=== PATIENT | female | born 1970 | race Caucasian/White ===

== ENCOUNTER 2019-12-04 04:52 | Outpatient (CLI) | payer OTHER, SELFPAY ==
[2019-12-04 08:14] LABS: ALT 44 U/L (14-59); AST 12 U/L (15-37); Albumin 3.9 g/dL (3.4-5.0); Alkaline Phosphatase 61 U/L (46-116); Anion Gap 7.2 mmol/L (3-11); BUN 11 mg/dL (7-18); Bilirubin, Total 0.4 mg/dL (0.2-1.0); CO2 28.8 mmol/L (21.0-32.0); CREATININE 0.72 mg/dL (0.55-1.02); Calcium 9.3 mg/dL (8.5-10.1); Calculated LDL 92 mg/dL (<100); Chloride 107 mmol/L (98-107); Cholesterol 197 mg/dL (<200); Glucose 88 mg/dL (74-106); HDL Cholesterol 96 mg/dL (40-60); Potassium 4.6 mmol/L (3.5-5.1); Sodium 143 mmol/L (136-145); Triglyceride 47 mg/dL (<150)
== END 2019-12-04 05:12 ==
PROVIDERS: PCP Family Medicine; Visit Provider Physician Assistant
DX: F10.10 Alcohol abuse, uncomplicated (principal); I10 Essential (primary) hypertension
CPT/HCPCS: 36415; 80053; 80061

== ENCOUNTER 2020-03-13 09:27 | Outpatient (REF) | payer OTHER, SELFPAY ==
--- NOTE | 2020-03-13 09:00 | PAPFT_PTH ---
PATIENT: Paula Yanes LOC: [facility] U#:[id number] AGE/SX: 50/F ROOM: RE03/13/[address]: ASYA Fong : 1970 BED: DIS: 03/13/2020 SPEC #: [id number] RECD: 03/13/20 12:53 STATUS: ALLAN REQ #: [id number] CARLOS: 03/13/20 09:[address]: Luz Marina Martinez DEPT: [facility] Cytology RECD BY: Yesenia Clinton ENTERED: 03/13/20 12:54 SP TYPE: PAPFT OTHR DR: Keagan Willson Tissues: 1 - CX/ENDOCX FOR PAP SMEARS Procedures: PAP THIN PREP/UVM Screening HPV DNA PROBE Comments: [id number]
== END 2020-03-13 09:47 ==
LOC: LBN 09:27
PROVIDERS: PCP Family Medicine; Visit Provider Nurse Practitioner Family
DX: Z12.4 Encounter for screening for malignant neoplasm of cervix (principal); Z11.51 Encounter for screening for human papillomavirus (HPV)
CPT/HCPCS: 88142; 87624

== ENCOUNTER 2020-04-10 01:05 | Outpatient (CLI) | payer OTHER, SELFPAY ==
--- NOTE | 2020-04-10 07:30 | DI.MAMMO_ITS ---
EXAM: MG MAMMO SCREENING CLINICAL HISTORY: screening. TECHNIQUE: Bilateral full field digital CC and MLO mammographic images were obtained with 3D tomosyn thesis and utilizing computer aided detection (CAD). COMPARISON: Prior mammograms dating back to 2010, the most recent being July 2017. FINDINGS: There is benign appearing microcalcification group noted in the left breast, unchanged. There appear to be increasing nodular densities towards lateral aspect right breast. Spot compressio n and ultrasound recommended no malignant-appearing microcalcification groups in this region or elsew here in either breast. There is no significant architectural distortion nor skin thickening-retract ion. IMPRESSION: No radiographic evidence of malignancy in the left breast. Increasing subtle nodular densities in the lateral aspect of the right breast as well as medially of center. Recommend spot compression CC views plus straight lateral 3D view. Also recommend breast ul trasound. BI-RADS Category 0 - Assessment Incomplete: Need additional imaging evaluation Breast Density - Category B - Scattered areas of fibroglandular density Breast density Category C or D implies that the patient has dense breast tissue. Dense breast tissue can make it harder to find cancer on a mammogram. Dense breast tissue is also associated with an incr eased risk of breast cancer. This information about the result of the mammogram report was provided to the patient to raise their awareness. Use this report when you speak with the patient about their risks for breast cancer, which includes their family history. At that time, you may recommend additional screening tests (Ultrasoun d or MRI) as these tests may add significant information. A negative radiographic report should not delay biopsy if a dominant or clinically suspicious mass is present. Up to ten percent of cancers are not identified on mammography. A negative report may reinforce clinical impression. Adenosis and dense breasts may obscure an underlying neoplasm. False positive reports average 6 to 10%. Patient will receive a letter notifying them of these results.
== END 2020-04-10 01:25 ==
PROVIDERS: PCP Student in an Organized Health Care Education/Training Program; Visit Provider Nurse Practitioner Family
DX: Z12.31 Encounter for screening mammogram for malignant neoplasm of breast (principal); R92.8 Other abnormal and inconclusive findings on diagnostic imaging of breast
CPT/HCPCS: 77063; 77067

== ENCOUNTER 2020-04-18 04:42 | Outpatient (CLI) | payer OTHER, SELFPAY ==
--- NOTE | 2020-04-18 | DI.US_ITS ---
EXAM: US BREAST RT LIMITED CLINICAL HISTORY: F/U MAMMO, INCREASING NODULAR DENSITIES. TECHNIQUE: Limited ultrasound of the right breast was performed. COMPARISON: Prior mammograms were reviewed. Today spot compression 3D views were reviewed . This is a combined report for the diagnostic mammogram and ultrasound FINDINGS: Additional spot compression 3D mammographic views are somewhat equivocal for the presence of true nod ules. Therefore we proceeded with breast ultrasound. Right breast ultrasound reveals a solitary focal finding which is at the 11 o'clock position. This h as the appearance of a 3 x 3 millimeter hemorrhagic microcyst. It exhibits slightly increased throug h transmission. IMPRESSION: Benign-appearing finding as described above located at the 11 o'clock position of the right breast. Appropriate follow-up is repeat right breast imaging in 6 months time, this to include repeat right b reast mammogram and repeat right breast ultrasound.. Findings and recommendations were discussed by myself with the patient today. BI-RADS Category 3 - 6 month - Probably Benign Finding: Recommend follow-up mammography in 6 months Breast Density - Category B - Scattered areas of fibroglandular density Breast density Category C or D implies that the patient has dense breast tissue. Dense breast tissue can make it harder to find cancer on a mammogram. Dense breast tissue is also associated with an incr eased risk of breast cancer. This information about the result of the mammogram report was provided to the patient to raise their awareness. Use this report when you speak with the patient about their risks for breast cancer, which includes their family history. At that time, you may recommend additional screening tests (Ultrasoun d or MRI) as these tests may add significant information. A negative radiographic report should not delay biopsy if a dominant or clinically suspicious mass is present. Up to ten percent of cancers are not identified on mammography. A negative report may reinforce clinical impression. Adenosis and dense breasts may obscure an underlying neoplasm. False positive reports average 6 to 10%. Patient will receive a letter notifying them of these results.
--- NOTE | 2020-04-18 14:43 | DI.MAMMO_ITS ---
EXAM: MG MAMMO SCREEN CALL BACK UNI CLINICAL HISTORY: F/U MAMMO, INCREASING NODULAR DENSITIES RT BREAST. TECHNIQUE: Spot-compression 3D views of the right breast. COMPARISON: Prior mammograms dating back to 2010, the most recent being 04/10/2020. FINDINGS: Additional spot mammographic views performed today render some of the nodular densities less evident. One is equivocal. Right breast ultrasound performed following the additional mammographic views revealed a solitary fin ding at 11 o'clock position which has appearance of a well-defined 3 x 3 millimeter deep hemorrhagic microcyst.. IMPRESSION: As above. Appropriate follow-up is repeat right breast imaging in 6 months time, this to include rep eat right breast mammogram and repeat breast ultrasound. Findings and recommendations were discussed by myself with the patient today. BI-RADS Category 3 - 6 month - Probably Benign Finding: Recommend follow-up mammography in 6 months Breast Density - Category B - Scattered areas of fibroglandular density Breast density Category C or D implies that the patient has dense breast tissue. Dense breast tissue can make it harder to find cancer on a mammogram. Dense breast tissue is also associated with an incr eased risk of breast cancer. This information about the result of the mammogram report was provided to the patient to raise their awareness. Use this report when you speak with the patient about their risks for breast cancer, which includes their family history. At that time, you may recommend additional screening tests (Ultrasoun d or MRI) as these tests may add significant information. A negative radiographic report should not delay biopsy if a dominant or clinically suspicious mass is present. Up to ten percent of cancers are not identified on mammography. A negative report may reinforce clinical impression. Adenosis and dense breasts may obscure an underlying neoplasm. False positive reports average 6 to 10%. Patient will receive a letter notifying them of these results.
== END 2020-04-18 05:02 ==
PROVIDERS: PCP Student in an Organized Health Care Education/Training Program; Visit Provider Nurse Practitioner Family
DX: R92.8 Other abnormal and inconclusive findings on diagnostic imaging of breast (principal)
CPT/HCPCS: 76642; 77063; 77067

== ENCOUNTER 2020-11-14 02:55 | Outpatient (CLI) | payer OTHER, SELFPAY ==
--- NOTE | 2020-11-14 08:15 | DI.MAMMO_ITS ---
Exam(s) MG MAMMO DIAGNOSTIC UNI US BREAST RT LIMITED EXAM: MG MAMMO DIAGNOSTIC UNI and U/S breast RT limited CLINICAL HISTORY: 6mo f/u,R92.8. TECHNIQUE: Craniocaudal and mediolateral oblique Full Field Digital Mammography views of the right b reast with Computer Aided Diagnosis followed by Tomosynthesis and right breast ultrasound. COMPARISON: Priors are available for comparison. FINDINGS: Mammography/Tomosynthesis: Masses/Architectural Distortion: The nodular density in the upper right breast appears stable. No jason spicious masses or areas of architectural distortion. Microcalcifictions: No suspicious pleomorphic-type are seen. Skin Thickening/Nipple Retraction: None. Right breast US: Echotexture: Normal appearance of the glandular tissue. Shadowing: No suspicious foci. Cyst: There is again seen at 3 x 2 x 3 mm cyst at the 11 o'clock position of the right breast 5 cm fr om the nipple. It shows no change compared to the prior examination. Solid lesions: None seen. Ductal dilation: None. IMPRESSION: 1. No evidence of malignancy is noted. 2. A six-month follow-up right mammogram and ultrasound are requested for re-evaluation. Screening m ammography of the left breast should be obtained at that time. 3. The findings were discussed with the patient on the date of the examination. BI-RADS Category 3 - 6 month - Probably Benign Finding: Recommend follow-up imaging in 6 months Breast Density - Category B - Scattered areas of fibroglandular density Breast density Category C or D implies that the patient has dense breast tissue. Dense breast tissue can make it harder to find cancer on a mammogram. Dense breast tissue is also associated with an incr eased risk of breast cancer. This information about the result of the mammogram report was provided to the patient to raise their awareness. Use this report when you speak with the patient about their risks for breast cancer, which includes their family history. At that time, you may recommend additional screening tests (Ultrasoun d or MRI) as these tests may add significant information. A negative radiographic report should not delay biopsy if a dominant or clinically suspicious mass is present. Up to ten percent of cancers are not identified on mammography. A negative report may reinforce clinical impression. Adenosis and dense breasts may obscure an underlying neoplasm. False positive reports average 6 to 10%. Patient will receive a letter notifying them of these results.
== END 2020-11-14 03:15 ==
PROVIDERS: PCP Student in an Organized Health Care Education/Training Program; Visit Provider Nurse Practitioner Family
DX: R92.8 Other abnormal and inconclusive findings on diagnostic imaging of breast (principal)
CPT/HCPCS: 76642; 77061; 77065; G0279

== ENCOUNTER 2020-11-21 11:00 | Day surgery (SDC) | payer OTHER, SELFPAY ==
--- NOTE | 2020-11-20 15:03 | W.COLOREPORT ---
Date of service: 11/21/20 Time of Service: 11:00 Colonoscopy Report Date of procedure: 11/21/20 Pre-op diagnosis general: Colon cancer screening Post-op diagnosis procedure note: other Surgeon: Pricila Rogers Anesthesia Type: General:No Airway Estimated blood loss (mL): 1 Pathology: other Complications: None Disposition: same day Retraction Time: 11 Procedure Description: After informed consent was obtained the patient was taken to the procedure room and placed in a left decubitous position. Monitors were applied and a time out was done. The patients name, date of , procedure, allergies to medications and metal in their body was reviewed. The patient was then sedated. Once sedated and comfortable a rectal exam was done. External exam was normal. Internal exam revealed a normal sphincter tone and no palpable masses. The scope was then introduced and retrofelexed. No internal hemorrhoids were identified. The scope was then advanced to the cecum without difficulty. The TI and appendiceal orifice were identified. The prep was good. The scope was then slowly retracted over 11 minutes back into the rectum. Polyps were removed at 30cm w/ a hot forcepts. The scope was removed and the patient was woken up and taken back to Same day surgery in stable condition. The patient tolerated the procedure well and there were no immediate complications. Follow up: The patient should follow up in 5 years unless they develop changes in bowel habits or other new gastrointestinal complaints.
--- NOTE | 2020-11-20 15:04 | PDOC.DSDIS_ITS ---
Discharge Plan Disposition Patient Disposition: HOME Condition: Good Discharge Details Reason For Visit: colon scope Attending Provider: Pricila Rogers Primary Care Provider: Samanta Walters Home Meds and New Rx's Prescriptions: Continued mecobalamin (vitamin B12) 5,000 mcg tablet,disintegrating 5,000 mcg PO DAILY RF: 0 Memory Complex 60-30-70-40 oj-mcys-sav-mg tablet 1 tab PO DAILY RF: 0 Complete Multivitamin Tablet 1 tab PO DAILY RF: 0 fluoxetine 40 mg capsule 80 mg PO DAILY Qty: 90 RF: 3 lisinopril 20 mg tablet 20 mg PO DAILY Qty: 90 RF: 3 Discontinued polyethylene glycol 3350 17 gram/dose powder 238 g PO ONCE Qty: 238 RF: 0 bisacodyl [Dulcolax (bisacodyl)] 5 mg tablet,delayed release (DR/EC) 5 mg PO ONCE Qty: 4 RF: 0 Discharge Instructions Additional Instructions: DSU Colonoscopy Post- Op Instructions Instructions for Everyone who is given Anesthesia: For your safety, please do the following for the next twenty-four (24) hours: *Do Not operate a motor vehicle (car, truck, motorcycle, etc.) *Do Not drink alcoholic beverages or use any recreational drugs for the first 24 hours or while taking pain medications. The medications in your body may have a reaction that can be dangerous. *Do Not make any important decisions or sign any important papers. Findings: polyp x1 Follow up: repeat scope in 5 yrs time 1. No lifting over 20 pounds or strenuous activity for the first 24 hours after your procedure. After 24 hours there are no restrictions on your activity but you may feel fatigued for a few days. 2. After you arrive home you may have a light meal and return to your normal diet as you can tolerate it without feeling sick to your stomach. 3. You may have a bloated, gaseous feeling in your belly (abdomen) after a colonoscopy. Passing gas and belching will help. Walking or lying down on your left side with your knees flexed may relieve the discomfort. Call the office at [phone] (Office) or [phone] (Hospital) right away if you notice any of the following: a.Vomiting of blood or ?coffee ground stools?. b.Rectal bleeding 1Tbsp, blood clots or continuous bleeding. c.Severe belly (abdominal) pain. d.A hard distended belly (abdomen) and an inability to pass gas. 4. Please don?t expect to have a normal BM (bowel movement) for 2-3 days after your procedure. 5. If there are questions regarding the findings of your procedure, please contact your doctor 6. If you are unable to contact your doctor with a problem, contact the hospital at [phone]. 7. Continue all your regular medications unless directed otherwise. I understand the above instructions and have no questions. Signature of Patient or Adult Escort Name of Responsible Adult Escort Signature of Nurse Date/Time Activity:: see above Diet:: see above Discharge Orders Discharge Orders: Discharge Order (Routine); Ordered 11/20/20 Ordered By: Pricila Rogers DS: Diagnosis Discharge Diagnosis (1) Adenomatous polyp of sigmoid colon: Status: Acute
--- NOTE | 2020-11-21 06:23 | ANES.PREOP_ITS ---
General Info Date of Service Date Performed: 11/21/20 Height: 5 ft 6 in Weight: 96.842 kg Body Mass Index (BMI): 34.4 Surgical Procedure: Operation Date: 11/21/20 11:20 Proposed Procedures Side Surgeon seamus Rogers, Meds Allergies and Home Medications Allergies Allergy/AdvReac Type Severity Reaction Status Date / Time No Known Drug Allergies Allergy Verified 11/21/20 11:17 Home Medication Medication Instructions Recorded multivitamin,rv-ysiy-boahgpah 1 tab PO DAILY 04/25/20 fluoxetine 40 mg capsule 80 mg PO DAILY #90 cap 04/26/20 lisinopril 20 mg tablet 20 mg PO DAILY #90 tab 04/26/20 bisacodyl 5 mg tablet,delayed 5 mg PO ONCE #4 tab 11/17/20 release mecobalamin (vitamin B12) 5,000 5,000 mcg PO DAILY 11/17/20 mcg disintegrating tablet polyethylene glycol 3350 17 238 g PO ONCE #238 g 11/17/20 gram/dose oral powder vit C-vit E-Se-ginkgo biloba 60 1 tab PO DAILY 11/17/20 mg-30 unit-70 mcg-40 mg tablet Current Visit Medications: Current Medications Generic Name Dose Route Start Last Admin Trade Name Freq PRN Reason Stop Dose Admin Hyoscyamine Sulfate 0.125 mg 11/20/20 15:03 Hyoscyamine 0.125 Mg Sl/Oral/Chew SL DIRECTED PRN Ringer's Solution 1,000 mls @ 80 mls/hr 11/21/20 06:00 IV 12/20/20 23:59 [facility] IV Miscellaneous Supplies 1 each 11/21/20 06:00 Iv Access IV 12/20/20 23:59 DIRECTED ALEJO Ondansetron HCl 4 mg 11/20/20 15:03 Ondansetron 4 Mg/2 Ml Vial IVP Q4H PRN PRN Nausea / Vomiting Sodium Chloride 0 ml 11/21/20 06:00 Normal Saline Flush 10 Ml Syr IV 12/20/20 23:59 PRN PRN Sodium Chloride 0 ml 11/21/20 06:00 Normal Saline 10 Ml Vial IJ 12/20/20 23:59 DIRECTED PRN Sterile Water 0 ml 11/21/20 06:00 Water,Injection,Sterile 10 Ml Vial IJ 12/20/20 23:59 DIRECTED PRN PFSH Active Problems Active Problems: Problem Status Onset Code Colon cancer screening Z12.11 Alcohol use Z72.89 Counseling on health promotion and disease prevention Z71.89 MADHAVI (obstructive sleep apnea) G47.33 Eczema L30.9 Depression 08/19/15 F32.9 Hypertension 08/19/15 I10 Medical History Medical History Alcohol use Counseling on health promotion and disease prevention Eczema History of ETOH abuse MADHAVI (obstructive sleep apnea) Tobacco Smoking/Tobacco Use Status: Former Tobacco Use Alcohol Alcohol Intake: current Alcohol intake frequency: 0-2 drinks per day Alcohol type: hard liquor Substance Use Substance use: Never Substance use type: does not use Prental History History 2 Para 1 Hx # Term Pregnancies Multiple births Hx # Pregnancies Ectopic pregnancies AB induced Hx Number of Living Children AB spontaneous Vital Signs and Lab Results Vital Signs Most Recent Vital Signs in EMR: Temp Pulse Resp BP Pulse Ox 36.7 C 83 17 146/90 H 96 11/21/20 11:11 11/21/20 11:11 11/21/20 11:11 11/21/20 11:11 11/21/20 11:11 Lab Results Blood Type / Crossmatch: No Data to Display Complete Blood Count: No Data to Display Complete Metabolic Panel: No Data to Display Liver Function Panel: No Data to Display Coagulation Panel: No Data to Display Cardiac Panel: No Data to Display Arterial Blood Gas: No Data to Display Venous Blood Gas: No Data to Display Pancreas Panel: No Data to Display Thyroid Panel: No Data to Display Infectious Disease: No Data to Display Blood Cultures: No Data to Display Toxicology Panel: No Data to Display Panel: No Data to Display Anesthesia Assessment and Plan Anesthesia History Personal History: No History of Anesthesia Complications Family History: No Family History of Anesthesia Complications Exercise Tolerance Exercise Tolerance: Metabolic Equivalents>4 Cardiac & Pulmonary Exam Cardiac Exam: Normal S1/S2 Heart Sounds Pulmonary Exam: Clear Bilateral Breath Sounds Airway Exam Known Difficult Airway: No Mallampati Class: 1 Mouth Opening: Normal (> 3cm) Thyromental Distance: Greater than 3 cm Neck Range of Motion: Full ROM Neck Circumference: Normal Teeth Condition: Normal Dentition ASA Classification ASA Score: ASA 2 Emergency Case?: No NPO Status NPO Status: NPO Clears >2 hours, Solids >8 hours Status Status: Negative HCG Anesthesia Plan Resuscitation Status: Full Code Anesthesia Technique: General Anesthesia Airway Planned: Natural Airway Monitors Used: Standard Monitors Preoperative Comments:: 50 yo female for screening colonoscopy. PMHx for MADHAVI (has CPAP), HTN (lisinopril).
[2020-11-21 11:11] VITALS: BP 146/90; PULSE 83; RESP 17; TEMP 36.7; O2SAT 96
[2020-11-21 11:25] VITALS: BMI 34.4
[2020-11-21] MEDS: Lactated Ringers 1,000 ML 80 ML IV (11:28)
--- NOTE | 2020-11-21 11:58 | BOWEL_PTH ---
PATIENT: Paula Yanes LOC: [facility] U#:[id number] AGE/SX: 50/F ROOM: RE11/21/[address]: Pricila Rogers : 1970 BED: DIS: 11/21/2020 SPEC #: [id number] RECD: 11/21/20 13:09 STATUS: ALLAN RE #: [id number] CARLOS: 11/21/20 11:[address]: Pricila Rogers DEPT: Surgical Specimen RECD BY: Yesenia Clinton ENTERED: 11/21/20 13:10 SP TYPE: Bowel OTHR DR: Samanta Walters DO Tissues: 1 - BIOPSY BOWEL Procedures: GROSS AND MICRO LEVEL 4 Comments: [id number]
[2020-11-21 12:05] VITALS: BP 106/70; PULSE 77; RESP 18; TEMP 36.4; O2SAT 96
[2020-11-21 12:35] VITALS: BP 137/80; PULSE 76; RESP 16; TEMP 36.2; O2SAT 97
--- NOTE | 2020-11-21 13:39 | W.ANESPOSTOP ---
Postoperative Evaluation Date, Time and Location Date Performed: 11/21/20 Time Performed: 13:39 Patient Location: Day Surgery Unit Vital Signs Most Recent Imported Vital Signs: Most Recent Vital Signs Temp Pulse Resp BP Pulse Ox 36.2 C L 76 16 137/80 97 11/21/20 12:35 11/21/20 12:35 11/21/20 12:35 11/21/20 12:35 11/21/20 12:35 Pain Score Most Recent Pain Score: Most Recent Pain Score Pain Level 0 11/21/20 12:35 Assessment Mental Status: Awake (Alert & Oriented to Patient Baseline) Airway and Respiratory Function: Patent airway with normal (patient baseline) respiratory exam Cardiovascular Function: Hemodynamically Stable Hydration Status: Adequately Hydrated Nausea & Vomiting: No Nausea or Vomiting Pain: Pt. Denies Any Pain Peripheral Nerve Block: Patient did not receive a nerve block
== END 2020-11-21 12:50 | disposition home or self-care (01) ==
PROVIDERS: PCP Student in an Organized Health Care Education/Training Program; Visit Provider Surgery
PROC: 0DJD8ZZ Inspection of Lower Intestinal Tract, Via Natural or Artificial Opening Endoscopic (ICD-10-PCS; CPT 45378; principal; 2020-11-21 11:15)
DX: Z12.11 Encounter for screening for malignant neoplasm of colon (principal); K63.5 Polyp of colon; G47.33 Obstructive sleep apnea (adult) (pediatric)
CPT/HCPCS: 45384; 81025; 88305; J2001; J2704

== ENCOUNTER 2021-07-24 00:29 | Outpatient (CLI) | payer BC, SELFPAY ==
--- NOTE | 2021-07-24 07:15 | DI.MAMMO_ITS ---
Exam(s) MAMMO DIAGNOSTIC BI EXAM: MAMMO DIAGNOSTIC BI CLINICAL HISTORY: diagnostic, 6 mo f/u, r92.8 TECHNIQUE: Mammograms were interpreted according to the usual protocol including computer analysis w [employer] CAD system, tomosynthesis and C-view imaging. COMPARISON: 2012 through 14 November 2020 FINDINGS: The breasts are composed of scattered fibroglandular densities, Breast Density category B. No suspicious masses or suspicious microcalcifications are seen. No skin thickening or abnormal axillary lymph nodes are seen. There has been no significant change from prior exams. IMPRESSION: BI-RADS Category 1, Negative mammogram Yearly screening mammography is recommended. Breast Density - Category B, scattered fibroglandular densities. A negative radiographic report should not delay biopsy if a dominant or clinically suspicious mass is present. Up to ten percent of cancers are not identified on mammography. A negative report may reinforce clinical impression. Adenosis and dense breasts may obscure an underlying neoplasm. False positive reports average 6 to 10%. Patient will receive a letter notifying them of these results.
== END 2021-07-24 00:49 ==
LOC: DI 00:34
PROVIDERS: PCP Student in an Organized Health Care Education/Training Program; Visit Provider Nurse Practitioner Family
DX: R92.8 Other abnormal and inconclusive findings on diagnostic imaging of breast (principal); N64.59 Other signs and symptoms in breast
CPT/HCPCS: 77062; 77066; G0279

== ENCOUNTER 2022-09-13 02:31 | Outpatient (CLI) | payer BC, SELFPAY ==
--- NOTE | 2022-09-13 17:00 | DI.MAMMO_ITS ---
Exam(s) MAMMO SCREENING EXAM: MAMMO SCREENING CLINICAL HISTORY: screening. TECHNIQUE: Bilateral full field digital CC and MLO mammographic images were obtained with 3D tomosyn thesis and utilizing computer aided detection (CAD). COMPARISON: Prior mammograms were reviewed. FINDINGS: No new significant findings in the right breast. In the left breast there is an asymmetric density-possible nodule measuring 11 by 10 mm, located appr oximately 4 cm in from nipple on the 3D MLO view. Further imaging of this recommended. No malignant-appearing microcalcification groups in this region. There is no significant architectural distortion nor skin thickening-retraction. IMPRESSION: 1. No radiographic evidence of malignancy in the right breast. 2. Left breast nodular density as described above. Spot compression views and breast ultrasound ary mmended. BI-RADS Category 0 - Assessment Incomplete: Need additional imaging evaluation Breast Density - Category B - Scattered areas of fibroglandular density Breast density Category C or D implies that the patient has dense breast tissue. Dense breast tissue can make it harder to find cancer on a mammogram. Dense breast tissue is also associated with an incr eased risk of breast cancer. This information about the result of the mammogram report was provided to the patient to raise their awareness. Use this report when you speak with the patient about their risks for breast cancer, which includes their family history. At that time, you may recommend additional screening tests (Ultrasoun d or MRI) as these tests may add significant information. A negative radiographic report should not delay biopsy if a dominant or clinically suspicious mass is present. Up to ten percent of cancers are not identified on mammography. A negative report may reinforce clinical impression. Adenosis and dense breasts may obscure an underlying neoplasm. False positive reports average 6 to 10%. Patient will receive a letter notifying them of these results.
== END 2022-09-13 02:51 ==
LOC: DI 02:32
PROVIDERS: PCP Student in an Organized Health Care Education/Training Program; Visit Provider Nurse Practitioner Women's Health
DX: Z12.31 Encounter for screening mammogram for malignant neoplasm of breast (principal)
CPT/HCPCS: 77063; 77067

== ENCOUNTER 2022-09-23 01:25 | Outpatient (CLI) | payer BC, SELFPAY ==
--- NOTE | 2022-09-23 | DI.MAMMO_ITS ---
Exam(s) MAMMO SCREEN CALL BACK UNI EXAM: MAMMO SCREEN CALL BACK UNI CLINICAL HISTORY: ASYMMETRIC DENSITY -POSSIBLE NODULE LEFT BREAST R92.8 ABNL MAMMO TECHNIQUE: Cc and MLO spot compression views with tomographic imaging were performed. COMPARISON: 2014 through recent exam of 13 September 2022 FINDINGS: No suspicious masses or suspicious microcalcifications are seen. No persistent abnormality is seen on the additional views performed. The findings are consistent wit h overlying fibroglandular tissue. There has been no significant change from prior exams. IMPRESSION: BI-RADS Category 1, Negative Yearly screening mammography is recommended. Breast Density - Category B, scattered fibroglandular densities.
== END 2022-09-23 01:45 ==
LOC: DI 01:25
PROVIDERS: PCP Student in an Organized Health Care Education/Training Program; Visit Provider Nurse Practitioner Women's Health
DX: Z12.31 Encounter for screening mammogram for malignant neoplasm of breast (principal); R92.8 Other abnormal and inconclusive findings on diagnostic imaging of breast
CPT/HCPCS: 77063; 77067

== ENCOUNTER 2023-01-06 03:59 | Outpatient (CLI) | payer BC, SELFPAY ==
[2023-01-06 07:59] LABS: HCT 36.5 % (36.0-46.0); HGB 12.6 g/dL (11.2-15.7); MCHC 34.5 % (32.0-36.0); MCV 98 fL (80-95); MPV 11.7 fL (8.0-11.0); Platelet Count 242 10^3/uL (130-400); RBC 3.71 10^6/uL (3.93-5.22); RDW 13.1 % (11.7-14.6); RDW-SD 47.3 fL; WBC 4.34 10^3/uL (4.4-10.8)
[2023-01-06 08:35] LABS: Folate 11.9 ng/mL (8.6-20.0)
[2023-01-06 08:54] LABS: ALT 82 U/L (14-59); AST 40 U/L (15-37); Albumin 3.6 g/dL (3.4-5.0); Alkaline Phosphatase 83 U/L (46-116); Anion Gap 11.4 mmol/L (3-11); BUN 8 mg/dL (7-18); Bilirubin, Total 0.3 mg/dL (0.2-1.0); CO2 24.6 mmol/L (21.0-32.0); CREATININE 0.8 mg/dL (0.55-1.02); Calcium 9.3 mg/dL (8.5-10.1); Calculated LDL 101 mg/dL (<100); Chloride 103 mmol/L (98-107); Cholesterol 224 mg/dL (<200); Glucose 82 mg/dL (74-106); HDL Cholesterol 109 mg/dL (40-60); Potassium 3.6 mmol/L (3.5-5.1); Sodium 139 mmol/L (136-145); Total Protein 7.6 g/dL (6.4-8.2); Triglyceride 74 mg/dL (<150); Vitamin B12 968 pg/mL (193-986)
[2023-01-06 09:03] LABS: Bilirubin, Direct 0.1 mg/dL (0.0-0.2)
== END 2023-01-06 04:00 | disposition home or self-care (01) ==
LOC: LBO 04:05
PROVIDERS: PCP Student in an Organized Health Care Education/Training Program; Referring Provider Student in an Organized Health Care Education/Training Program; Visit Provider Student in an Organized Health Care Education/Training Program
DX: D12.5 Benign neoplasm of sigmoid colon (principal); G47.33 Obstructive sleep apnea (adult) (pediatric); I10 Essential (primary) hypertension; N92.0 Excessive and frequent menstruation with regular cycle; R53.83 Other fatigue; F32.9 Major depressive disorder, single episode, unspecified; K21.9 Gastro-esophageal reflux disease without esophagitis; K90.9 Intestinal malabsorption, unspecified; Z63.79 Other stressful life events affecting family and household; Z72.89 Other problems related to lifestyle; Z91.89 Other specified personal risk factors, not elsewhere classified; Z13.220 Encounter for screening for lipoid disorders
CPT/HCPCS: 36415; 80048; 80061; 80076; 82306; 85027; 82607; 82746

== ENCOUNTER 2023-05-09 05:23 | Outpatient (CLI) | payer BC, SELFPAY ==
[2023-05-09 07:33] LABS: Abs Immature Grans 0.01 10^3/uL (0.0-0.06); Absolute Basophil Count 0.07 10^3/uL (0.0-0.2); Absolute Eosinophil Count 0.14 10^3/uL (0.0-0.7); Absolute Lymphocyte Count 2.03 10^3/uL (1.2-3.4); Absolute Monocyte Count 0.43 10^3/uL (0.1-0.8); Absolute Neutrophil Count 1.88 10^3/uL (1.2-6.7); Basophils % 1.5; Eosinophils % 3.1; HCT 36.9 % (36.0-46.0); HGB 12.8 g/dL (11.2-15.7); Immature Grans % 0.2; Lymphocytes % 44.5; MCH 34.1 pg (27.0-33.0); MCHC 34.7 % (32.0-36.0); MCV 98 fL (80-95); Monocytes % 9.4; Neutrophils % 41.3; Platelet Count 276 10^3/uL (130-400); RBC 3.75 10^6/uL (3.93-5.22); RDW 12.9 % (11.7-14.6); RDW-SD 46.3 fL; WBC 4.56 10^3/uL (4.4-10.8)
[2023-05-09 08:33] LABS: ALT 31 U/L (14-59); AST 19 U/L (15-37); Albumin 3.6 g/dL (3.4-5.0); Alkaline Phosphatase 70 U/L (46-116); BUN 11 mg/dL (7-18); Bilirubin, Direct 0.1 mg/dL (0.0-0.2); Bilirubin, Total 0.4 mg/dL (0.2-1.0); CREATININE 0.8 mg/dL (0.55-1.02); Calcium 8.8 mg/dL (8.5-10.1); Chloride 103 mmol/L (98-107); Estimated GFR 88.05 (mL/min/1.73m2); Glucose 85 mg/dL (74-106); Potassium 3.7 mmol/L (3.5-5.1); Sodium 139 mmol/L (136-145); Total Protein 7.4 g/dL (6.4-8.2)
== END 2023-05-09 05:24 | disposition home or self-care (01) ==
LOC: LBO 05:23
PROVIDERS: Absent Provider Student in an Organized Health Care Education/Training Program; PCP Student in an Organized Health Care Education/Training Program; Visit Provider Student in an Organized Health Care Education/Training Program
DX: I10 Essential (primary) hypertension (principal); D69.6 Thrombocytopenia, unspecified; R74.01 Elevation of levels of liver transaminase levels
CPT/HCPCS: 36415; 80048; 80076; 85025

== ENCOUNTER 2024-10-25 02:35 | Outpatient (CLI) | payer BC, SELFPAY ==
[2024-10-25 07:41] LABS: HCT 41.5 % (36.0-46.0); HGB 13.8 g/dL (11.2-15.7); MCH 32.5 pg (27.0-33.0); MCHC 33.3 % (32.0-36.0); MCV 98 fL (80-95); MPV 11.9 fL (8.0-11.0); Platelet Count 284 10^3/uL (130-400); RBC 4.25 10^6/uL (3.93-5.22); RDW 12.6 % (11.7-14.6); RDW-SD 45.6 fL; WBC 5.36 10^3/uL (4.4-10.8)
[2024-10-25 08:30] LABS: ALT 33 U/L (14-59); AST 14 U/L (15-37); Albumin 4.0 g/dL (3.4-5.0); Alkaline Phosphatase 84 U/L (46-116); Anion Gap 7.5 mmol/L (3-11); BUN 14 mg/dL (7-18); Bilirubin, Direct 0.1 mg/dL (0.0-0.2); Bilirubin, Total 0.5 mg/dL (0.2-1.0); CO2 29.5 mmol/L (21.0-32.0); Calcium 9.8 mg/dL (8.5-10.1); Chloride 102 mmol/L (98-107); Estimated GFR 87.50 (mL/min/1.73m2); Glucose 87 mg/dL (74-106); Potassium 4.0 mmol/L (3.5-5.1); Sodium 139 mmol/L (136-145); Total Protein 7.9 g/dL (6.4-8.2); Vitamin D 25 Total 50 ng/mL (30-100)
== END 2024-10-25 02:36 | disposition home or self-care (01) ==
PROVIDERS: PCP Nurse Practitioner Family; Visit Provider Nurse Practitioner Family
DX: D64.9 Anemia, unspecified (principal); Z72.89 Other problems related to lifestyle; R79.89 Other specified abnormal findings of blood chemistry
CPT/HCPCS: 36415; 80048; 80076; 82306; 85027

== ENCOUNTER 2024-11-14 08:49 | Outpatient (REF) | payer BC, SELFPAY ==
--- NOTE | 2024-11-14 08:25 | PAPFT_PTH ---
PATIENT: Paula Yanes LOC: [facility] U#:[id number] AGE/SX: 54/F ROOM: RE11/14/[address]: Delmi Ramirez NP : 1970 BED: DIS: 11/14/2024 SPEC #: [id number] RECD: 11/14/24 13:18 STATUS: ALLAN REQ #: [id number] CARLOS: 11/14/24 08:[address]: Delmi Ramirez NP DEPT: [facility] Cytology RECD BY: Yesenia Clinton ENTERED: 11/14/24 13:19 SP TYPE: PAPFT OTHR DR: Melissa Mcleod APRN Tissues: 1 - CX/ENDOCX FOR PAP SMEARS Procedures: PAP THIN PREP/[facility] Screening HPV DNA PROBE Comments: [id number] (HPV 16 & 18/45)
== END 2024-11-14 08:50 | disposition home or self-care (01) ==
LOC: LBN 08:49
PROVIDERS: PCP Nurse Practitioner Family; Visit Provider Nurse Practitioner Women's Health
DX: Z12.4 Encounter for screening for malignant neoplasm of cervix (principal)
CPT/HCPCS: 88142; 87624

== ENCOUNTER 2024-11-28 01:05 | Outpatient (CLI) | payer BC, SELFPAY ==
--- NOTE | 2024-11-28 07:45 | DI.MAMMO_ITS ---
Exam(s) MAMMO SCREENING EXAM: MAMMO SCREENING CLINICAL HISTORY: screening TECHNIQUE: Bilateral full field digital CC and MLO mammographic images were obtained with 3D tomosynthesis and utilizing computer aided detection (CAD). COMPARISON: Comparison is made with prior examinations. FINDINGS: Masses/Architectural Distortion: No suspicious masses or areas of architectural distortion are present. The asymmetric density in the upper central left breast is unchanged compared to the prior examinations. Microcalcifications: No suspicious pleomorphic-type are seen. Skin Thickening/Nipple Retraction: None. IMPRESSION: 1. No significant interval change with no specific features of malignancy noted. 2. Unless there is more urgent need, screening mammography is recommended, as per [employer] guidelines. BI-RADS Category 1 - Negative Breast Density - Category B - There are scattered areas of fibroglandular density. Breast density Category C or D implies that the patient has dense breast tissue. Dense breast tissue can make it harder to find cancer on a mammogram. Dense breast tissue is also associated with an increased risk of breast cancer. This information about the result of the mammogram report was provided to the patient to raise their awareness. Use this report when you speak with the patient about their risks for breast cancer, which includes their family history. At that time, you may recommend additional screening tests (Ultrasound or MRI) as these tests may add significant information. A negative radiographic report should not delay biopsy if a dominant or clinically suspicious mass is present. Up to ten percent of cancers are not identified on mammography. A negative report may reinforce clinical impression. Adenosis and dense breasts may obscure an underlying neoplasm. False positive reports average 6 to 10%. Patient will receive a letter notifying them of these results.
== END 2024-11-28 01:25 ==
LOC: DI 01:05
PROVIDERS: PCP Nurse Practitioner Family; Visit Provider Nurse Practitioner Women's Health
DX: Z12.31 Encounter for screening mammogram for malignant neoplasm of breast (principal); R92.323 Mammographic fibroglandular density, bilateral breasts
CPT/HCPCS: 77063; 77067